=== PATIENT | male | born 1950 | race African-American/Black ===

== ENCOUNTER 2018-01-08 08:46 | Emergency (ER) | payer OTHER ==
[~2018-01-08] VITALS: Ht 170.2 cm; Wt 85.0 kg
[2018-01-08] MEDS ORDERED: LISI2.5T47 PO (08:49)
[2018-01-08] MEDS ORDERED: SODIUM CHLORIDE 0.9% 1,000 ML IV ONE (09:00)
[2018-01-08] MEDS ORDERED: MECLIZINE 25MG TABLET PO ONE (09:00)
[2018-01-08] MEDS ORDERED: ONDANSETRON HCL 4MG/2ML VIAL IV STA (09:00)
[2018-01-08 09:35] LABS: BASOPHILS % 0.1 % (0.0-2.0); HEMATOCRIT. 41.6 % (42.0-52.0); HEMOGLOBIN. 14.5 g/dL (14.0-18.0); LYMPHOCYTES % 10.9 % (20.0-50.0); MEAN CORPUSCULAR HEMOGLOBIN 32.9 pg (28.0-32.0); MEAN CORPUSCULAR VOLUME 94.5 fL (80.0-94.0); MEAN PLATELET VOLUME 8.3 fl (7.4-10.4); MONOCYTES % 5.6 % (2.0-8.0); NEUTROPHILS % 83.4 % (40.0-76.0); PLATELET 313 x1000/uL (130-400); RED CELL DISTRIBUTION WIDTH 12.1 % (11.6-14.6)
[2018-01-08 09:40] LABS: CHLORIDE 98 mEq/L (98-107)
[2018-01-08 13:20] VITALS: BP 160/91
== END 2018-01-08 13:38 | disposition home or self-care (01) ==
LOC: ER 08:46
DX: H81.399 Other peripheral vertigo, unspecified ear (principal); R42 Dizziness and giddiness; I10 Essential (primary) hypertension; E78.00 Pure hypercholesterolemia, unspecified; Z88.0 Allergy status to penicillin
CPT/HCPCS: 36415; 80053; 85025; 93005; 96361; 96374; 99285; J2405; J7030; J8597